=== PATIENT | female | born 1990 | race Caucasian/White ===

== ENCOUNTER 2017-08-04 07:03 | Inpatient (IN) | payer OTHER ==
[~2017-08-04] VITALS: Ht 154.9 cm; Wt 70.3 kg
[~2017-08-04 07:03] MED LIST: AUGMENTIN 875-1 EACH PO; SULFAMETHOXAZO1 EAC1 PO; VITAFOL-ONE CA1 EACH PO
--- NOTE | 2017-08-04 07:39 | ED SKIN/ALLERGY COMPLAINT ---
History of Present Illness General Chief Complaint: Skin Rash/ Abcess Stated Complaint: "I HAVE CELLULITIS ON MY CHEEK IT WENT TO MY EYE" Source: patient Exam Limitations: no limitations Vital Signs & Intake/Output Vital Signs & Intake/Output Vital Signs Date Time Temp Pulse Resp B/P B/P Pulse O2 O2 Flow FiO2 Mean Ox Delivery Rate 08/04 0933 99.0 77 18 140/80 99 Room Air 08/04 0706 98.0 98 18 150/86 96 Room Air Allergies Coded Allergies: NO KNOWN ALLERGIES (11/10/15) Reconcile Medications Amoxicillin/Potassium Clav (Augmentin 875-125 Tablet) 1 EACH TABLET 1 TAB PO BID CELLULITIS OF EYE Doxycycline Hyclate 100 MG CAPSULE 1 CAP PO BID INFECTION (Reported) Pnv#26/Iron Poly/FA/Dha (Vitafol-One Capsule) 1 EACH CAPSULE 1 CAP PO DAILY SUPPLEMENT (Reported) Triage Note: 27 YEAR OLD FEMALE STATES THAT 3 DAYS AGO SHE NOTED A RASH TO R SIDE OF FACE, 2 DAYS AGO SHE WOKE WITH R SIDE FACE SWOLLEN SO SHE WENT TO WALK IN AND THEY GAVE HER A DOSE OF IV ABT AND SENT HER HOME ON DOXY FOR CELLULITIS, PT WOKE TODAY AND R SIDE FACE INCREASED SWELLING INTO NECK AND R EYE AND OOZING PUSTULES, COMPLAINS OF PRESSURE BUT NO PAIN. AFEBRILE AT TRIAGE, R EYE LID RED AND SWOLLEN. DENIES DIFFICULTY SWALLOWING Triage Nurses Notes Reviewed? yes : No Patient currently breastfeeds: No HPI: 27 year old healthy female presents to the ER for chief complaint of right sided facial rash x 3 days associated with right sided eye swelling. She popped a pimple 3 days ago and applied a facial mask and then started to develop redness and swelling. 2 days ago she went to a walk in clinic where she got IV abx for one dose and was started on doxycycline 100 bid. This moring she states it spread into the right eyelid as well as some open pustules and pressure like feeling. No eye pain, change in vision, fever or chills. No other constitutional symptoms. History of preorbital cellulitis admission 2 years ago for preseptal celluliitis. Past History Travel History Traveled to [place] past 21 day No Medical History Any Pertinent Medical History? 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 No Review of Systems Review of Systems Constitutional: Denies: chills, fever. EENTM: Denies: blurred vision, eye pain, eye drainage. Respiratory: Denies: cough, short of breath, sputum production. Cardiovascular: Denies: chest pain. GI: Reports: no symptoms. Genitourinary: Reports: no symptoms. Musculoskeletal: Reports: no symptoms. Skin: Reports: erythema, rash. Neurological/Psychological: Reports: no symptoms. Hematologic/Endocrine: Denies: bruising, polyuria. Immunologic/Allergic: Reports: no symptoms. All Other Systems: Reviewed and Negative Physical Exam Physical Exam General Appearance: well developed/nourished, mild distress Head: atraumatic Eyes: Bilateral: PERRL, EOMI. Ears, Nose, Throat: normal pharynx, normal ENT inspection, hearing grossly normal Neck: normal inspection, supple Respiratory: normal breath sounds Cardiovascular: regular rate/rhythm Gastrointestinal: soft, non-tender Back: normal inspection Extremities: normal inspection, normal range of motion, no edema Neurologic/Psych: awake, alert, oriented x 3, normal mood/affect Lymphatic: no anterior cervical isabel Progress Plan of Care: Orders Procedure Date/time Status Regular Diet 08/04 D Active Patient Data 08/04 1150 Active ED Holding Orders 08/04 1145 Active Admit to inpatient 08/04 1145 Active Vital Signs 08/04 1145 Active Code Status 08/04 1145 Active BLOOD CULTURE 08/04 0744 Active URINE 08/04 0744 Complete COMPREHENSIVE METABOLIC PANEL 08/04 0744 Complete CBC WITHOUT DIFFERENTIAL 08/04 0744 Complete Laboratory Tests 08/04/17 1003: Urine Test NEGATIVE 08/04/17 0819: Anion Gap 18 H, Estimated GFR > 60, BUN/Creatinine Ratio 15.0, Glucose 112 H, Calcium 10.0, Total Bilirubin 0.1 L, AST 17, ALT 33, Alkaline Phosphatase 91, Total Protein 7.7, Albumin 4.7, Globulin 3.0, Albumin/Globulin Ratio 1.6, CBC w Diff NO MAN DIFF REQ, RBC 4.92, MCV 82.2, MCH 27.7, MCHC 33.7, RDW 13.0, MPV 7.4 , Gran % 79.0 H, Lymphocytes % 14.4 L, Monocytes % 3.5, Eosinophils % 2.9, Basophils % 0.2, Absolute Granulocytes 11.1 H, Absolute Lymphocytes 2.0, Absolute Monocytes 0.5, Absolute Eosinophils 0.4, Absolute Basophils 0 Microbiology 08/04 830 BLOOD: Blood Culture - RECD 08/04 818 BLOOD: Blood Culture - RECD Diagnostic Imaging: Viewed by Me: CT Scan. Discussed w/RAD: CT Scan. Radiology Impression: PATIENT: LAN MACHUCA PRESENT AGE: 27 PATIENT ACCOUNT NO: [id number] : 90 LOCATION: [facility] ORDERING PHYSICIAN: Barb Puente MD SERVICE DATE: 08/04/17 EXAM TYPE: CAT - CT MAXILLOFACIAL W CONT EXAMINATION: CT MAXILLOFACIAL WITH CONTRAST CLINICAL INFORMATION: Right facial swelling. Swelling around right eye. Evaluate for cellulitis COMPARISON: Portions of a previous study 11/10/15 TECHNIQUE: Multidetector helical imaging was performed in the axial plane with generation of coronal and sagittal reformatted images. The examination was performed after the administration of 98 mL of Optiray 320 intravenous contrast DLP: 820 mGy-cm FINDINGS: The globes are intact and symmetric. The lenses are not displaced. The optic nerves appear within normal limits and are symmetric. There is enhancement of the superior ophthalmic vein on each side. There is no asymmetry in the region of the lacrimal apparatus. There is no stranding in the orbital fat. Specifically there is no stranding deep to the orbital septum on either side. There is asymmetric stranding and skin thickening in the right malar and periorbital soft tissues. There is no discrete collection. There are prominent regional lymph nodes on the right which may be reactive. There is no extra-axial collection in the visualized portions of the head. There is no thrombus demonstrated within the carotid or jugular on either side. There is no focal abnormality within the submandibular or parotid gland on either side. The visualized airway appears intact. There is no fluid level. There is some metallic artifact. There is no bone destruction. Small thyroid nodules are nonspecific. IMPRESSION: There is evidence of superficial cellulitis in the preseptal soft tissues around the right orbit and malar soft tissues. There are prominent right cervical lymph nodes. No drainable abscess. No stranding in the orbital fat DICTATED BY: Dagoberto Soriano MD DATE/TIME DICTATED:08/04/171121 JEWELRY STORE MANAGER:LILY DATE/TIME TRANSCRIBED:08/04/171121 CONFIDENTIAL, DO NOT COPY WITHOUT APPROPRIATE AUTHORIZATION. <Electronically signed in Other Vendor System> SIGNED BY: Dagoberto Soriano MD 08/04/17 1136 Departure Departure Time of Disposition: 1143 Disposition: STILL A PATIENT Condition: Stable Clinical Impression Primary Impression: Facial cellulitis Referrals: Elicia Ellison APRN (PCP/Family) Departure Forms: Customer Survey General Discharge Information Admission Note Spoke With: Leti Rodriguez MD Documentation of Exam: Documentation of any treatments & extenuating circumstances including Concerns Regarding Discharge (functional status, medication knowledge or non-compliance, living conditions, etc.) that warrant an admission rather than observation: [IV ABX, TOPICAL CARE, CONSIDER ID CONSULT, F/U CULTURES. PATIENT FAILED OUTPATIENT ANTIBIOTICS, WOULD BE MEDICALLY HARMFUL FOR DISCHARGE]
[2017-08-04] MEDS ORDERED: DOXYCYCLINE HY100 M2 PO (08:14)
[2017-08-04 08:33] LABS: ABSOLUTE BASOPHIL COUNT 0 /CUMM (0.0-0.2); ABSOLUTE EOSINOPHIL COUNT 0.4 /CUMM (0.0-0.7); ABSOLUTE GRANULOCYTE CT 11.1 /CUMM (1.4-6.5); ABSOLUTE MONOCYTE COUNT 0.5 /CUMM (0.10-0.60); BASOPHIL % 0.2 % (0.0-2.0); EOSINOPHIL % 2.9 % (0-5); HEMATOCRIT 40.4 % (37-47); MEAN CORPUSCULAR HGB 27.7 PG (27.0-31.0); MEAN CORPUSCULAR HGB CONC 33.7 G/DL (33.0-37.0); MEAN CORPUSCULAR VOLUME 82.2 FL (81.0-99.0); MEAN PLATELET VOLUME 7.4 FL (7.4-10.4); PLATELET COUNT 460 /CUMM (130-400); RED BLOOD CELL CT 4.92 /CUMM (4.20-5.40); WHITE BLOOD CELL COUNT 14.1 /CUMM (4.8-10.8)
--- NOTE | 2017-08-04 11:36 | CT SCAN REPORT ---
EXAMINATION: CT MAXILLOFACIAL WITH CONTRAST CLINICAL INFORMATION: Right facial swelling. Swelling around right eye. Evaluate for cellulitis COMPARISON: Portions of a previous study 11/10/15 TECHNIQUE: Multidetector helical imaging was performed in the axial plane with generation of coronal and sagittal reformatted images. The examination was performed after the administration of 98 mL of Optiray 320 intravenous contrast DLP: 820 mGy-cm FINDINGS: The globes are intact and symmetric. The lenses are not displaced. The optic nerves appear within normal limits and are symmetric. There is enhancement of the superior ophthalmic vein on each side. There is no asymmetry in the region of the lacrimal apparatus. There is no stranding in the orbital fat. Specifically there is no stranding deep to the orbital septum on either side. There is asymmetric stranding and skin thickening in the right malar and periorbital soft tissues. There is no discrete collection. There are prominent regional lymph nodes on the right which may be reactive. There is no extra-axial collection in the visualized portions of the head. There is no thrombus demonstrated within the carotid or jugular on either side. There is no focal abnormality within the submandibular or parotid gland on either side. The visualized airway appears intact. There is no fluid level. There is some metallic artifact. There is no bone destruction. Small thyroid nodules are nonspecific. IMPRESSION: There is evidence of superficial cellulitis in the preseptal soft tissues around the right orbit and malar soft tissues. There are prominent right cervical lymph nodes. No drainable abscess. No stranding in the orbital fat
--- NOTE | 2017-08-04 12:51 | History & Physical ---
See Addendum General Information and HPI MD Statement: I have seen and personally examined LAN MACHUCA and documented this H&P. The patient is a 27 year old F who presented with a patient stated chief complaint of right facial swelling and redness. Source of Information: patient Exam Limitations: no limitations History of Present Illness: Patient is a 27-year-old woman with a history of recurrent right periorbital cellulitis, recent episode 2 years ago who presented to the emergency department today with a three-day history of right periorbital swelling, redness associated with mild discomfort, with no associated fevers or chills. Patient reports no history of trauma, although she does endorse to a rash that she noticed 3 days prior to admission which she cleaned with alcohol. Following this, patient developed worsening redness and swelling, which prompted her to go to an urgent care. There she was prescribed oral antibiotics (Doxy BID) after receiving a dose of IV antibiotic (unknown). Patient noticed no improvement over the course of next 2 days and decided to come to the ED for further care. No recent upper respiratory infection. At this point, she remains afebrile. No headaches, vision changes, otalgia or any ocular limitations. She does endorse to swollen glands on the right side of the neck. She denies any smoking, alcohol intake or any recreational drug use. Other systems reviewed and negative, exceptions above. Allergies/Medications Allergies: Coded Allergies: NO KNOWN ALLERGIES (11/10/15) Home Med list Amoxicillin/Potassium Clav (Augmentin 875-125 Tablet) 1 EACH TABLET 1 TAB PO BID CELLULITIS OF EYE Doxycycline Hyclate 100 MG CAPSULE 1 CAP PO BID INFECTION (Reported) Pnv#26/Iron Poly/FA/Dha (Vitafol-One Capsule) 1 EACH CAPSULE 1 CAP PO DAILY SUPPLEMENT (Reported) Past History Travel History Traveled to [place] past 21 day No Medical History Neurological: NONE EENT: allergies Cardiovascular: NONE Respiratory: NONE Gastrointestinal: NONE Hepatic: NONE Renal: NONE Musculoskeletal: NONE Psychiatric: NONE Endocrine: NONE Blood Disorders: NONE Cancer(s): NONE 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 Review of Systems Review of Systems Constitutional: Reports: see HPI. Exam & Diagnostic Data Last 24 Hrs of Vital Signs/I&O Vital Signs Date Time Temp Pulse Resp B/P B/P Pulse O2 O2 Flow FiO2 Mean Ox Delivery Rate 08/04 0933 99.0 77 18 140/80 99 Room Air 08/04 0706 98.0 98 18 150/86 96 Room Air Intake & Output 08/04 1600 08/04 0800 08/04 0000 Intake Total Output Total Balance Patient 155 lb Weight Physical Exam General Appearance Alert, Oriented X3, Cooperative Skin Areas of impetiginazation right side of face.periorbital edema, erythema and mild tenderness. HEENT Atraumatic, PERRLA, EOMI, Mucous Membr. moist/pink Lymphatic Cervical nl (right cervical lymphadenopathy) Cardiovascular Regular Rate, Normal S1, Normal S2 Lungs Clear to Auscultation, Normal Air Movement Abdomen Normal Bowel Sounds, Soft, No Tenderness Extremities No Clubbing, No Cyanosis, No Edema Last 24 Hrs of Labs/Sundeep: Laboratory Tests 08/04/17 1003: Urine Test NEGATIVE 08/04/17 0819: Anion Gap 18 H, Estimated GFR > 60, BUN/Creatinine Ratio 15.0, Glucose 112 H, Calcium 10.0, Total Bilirubin 0.1 L, AST 17, ALT 33, Alkaline Phosphatase 91, Total Protein 7.7, Albumin 4.7, Globulin 3.0, Albumin/Globulin Ratio 1.6, CBC w Diff NO MAN DIFF REQ, RBC 4.92, MCV 82.2, MCH 27.7, MCHC 33.7, RDW 13.0, MPV 7.4 , Gran % 79.0 H, Lymphocytes % 14.4 L, Monocytes % 3.5, Eosinophils % 2.9, Basophils % 0.2, Absolute Granulocytes 11.1 H, Absolute Lymphocytes 2.0, Absolute Monocytes 0.5, Absolute Eosinophils 0.4, Absolute Basophils 0 Microbiology 08/04 830 BLOOD: Blood Culture - RECD 08/04 818 BLOOD: Blood Culture - RECD Diagnostic Data Other Results Maxillofacial CT: IMPRESSION: There is evidence of superficial cellulitis in the preseptal soft tissues around the right orbit and malar soft tissues. There are prominent right cervical lymph nodes. No drainable abscess. No stranding in the orbital fat Assessment/Plan Assessment: 27-year-old woman with history of recurrent periorbital cellulitis presents with four-day history of right periorbital/facial erythema, edema and discomfort, afebrile throughout with leukocytosis and a CAT scan revealing superficial cellulitis in the preseptal soft tissues around the right orbit and malar soft tissues. 1. Right iliana-orbital cellulitis: Continue Unasyn at 1.5 g IV every 6 hours. Warm compresses to the affected area. Continue to monitor for fevers and white count. Transition to oral antibiotics contingent on clinical improvement to complete a total 10 day course. 2. Thrombocytosis: Likely reactive. Continue to monitor. High anion gap noted, no metabolic acidosis. Lactate ordered, 2.8. Patient does meet sepsis criteria, given leukocytosis, tachycardia, soft tissue source and mild lactatemia without acidosis. Hydration NS @100cc/hr x 1 bag. Recheck Lactate in 3 hours. Full code. Regular diet. Lovenox for DVT prophylaxis. As Ranked By This Provider Problem List: 1. Periorbital cellulitis of right eye Core Measures/Misc (03/19) Acute Coronary Syndrome ACS Diagnosis: No Congestive Heart Failure Congestive Heart Failure Diagnosis No Cerebrovascular Accident CVA/TIA Diagnosis: No VTE (View Protocol) VTE Risk Factors Oral Contraception No Mechanical VTE Prophylaxis d/t N/A MechProphylax Ordered No VTE Pharm Prophylaxis d/t NA PharmProphylax ordered Sepsis (View protocol) Sepsis Present: No
[2017-08-04 22:12] VITALS: BP 124/88
[2017-08-05 06:54] VITALS: BP 116/92
[2017-08-05 09:08] LABS: ABSOLUTE BASOPHIL COUNT 0 /CUMM (0.0-0.2); ABSOLUTE EOSINOPHIL COUNT 0.4 /CUMM (0.0-0.7); ABSOLUTE GRANULOCYTE CT 7.9 /CUMM (1.4-6.5); ABSOLUTE LYMPH COUNT 2.9 /CUMM (1.2-3.4); ABSOLUTE MONOCYTE COUNT 0.4 /CUMM (0.10-0.60); BASOPHIL % 0.4 % (0.0-2.0); EOSINOPHIL % 3.1 % (0-5); GRANULOCYTE % 67.5 % (42.2-75.2); HEMATOCRIT 38.4 % (37-47); MEAN CORPUSCULAR HGB 28.2 PG (27.0-31.0); MEAN CORPUSCULAR HGB CONC 33.8 G/DL (33.0-37.0); MEAN CORPUSCULAR VOLUME 83.4 FL (81.0-99.0); MEAN PLATELET VOLUME 7.5 FL (7.4-10.4); PLATELET COUNT 428 /CUMM (130-400); RBC DISTRIBUTION WIDTH 13.3 % (11.5-14.5); RED BLOOD CELL CT 4.61 /CUMM (4.20-5.40); WHITE BLOOD CELL COUNT 11.7 /CUMM (4.8-10.8)
--- NOTE | 2017-08-05 14:39 | PN- Att Addend ---
Attending Addendum Attending Brief Note Patient seen and examined. Overall she says she is feeling better. The swelling around the right eye is markedly better but now the area around her cheek is worrying her. On exam she is afebrile, blood pressure is 116/92, pulse is 84 and she is breathing at 16-18. She is awake alert oriented, lungs are clear to auscultation, heart is S1-S2 regular, abdomen is soft nontender. She has mild erythema on her eyelid with minimal swelling and no proptosis, no ophthalmoplegia and no pain behind the eyelid. On her right cheek area that are crusted lesions that appear acneiform with mild erythema around it and some swelling. She has no trismus, she has some shotty cervical lymphadenopathy on the right side but she can move her tongue and facial muscles well and there is no abnormality. She is a 27-year-old has come in with a facial and preseptal cellulitis. She had the cellulitis last year toobut that was primarily around her eye. Her CT was negative for any complications. We'll continue IV Unasyn continue local warm compresses and follow. White count has come down nicely from 14-11. Follow closely.
[2017-08-05 14:43] VITALS: BP 128/80
[2017-08-05 23:16] VITALS: BP 130/92
[2017-08-06 06:42] VITALS: BP 118/68
[2017-08-06 08:40] LABS: ABSOLUTE BASOPHIL COUNT 0 /CUMM (0.0-0.2); ABSOLUTE EOSINOPHIL COUNT 0.4 /CUMM (0.0-0.7); ABSOLUTE GRANULOCYTE CT 7.6 /CUMM (1.4-6.5); ABSOLUTE LYMPH COUNT 2.7 /CUMM (1.2-3.4); ABSOLUTE MONOCYTE COUNT 0.6 /CUMM (0.10-0.60); BASOPHIL % 0.4 % (0.0-2.0); EOSINOPHIL % 3.2 % (0-5); GRANULOCYTE % 67.4 % (42.2-75.2); HEMATOCRIT 38.3 % (37-47); MEAN CORPUSCULAR HGB 27.9 PG (27.0-31.0); MEAN CORPUSCULAR HGB CONC 33.4 G/DL (33.0-37.0); MEAN CORPUSCULAR VOLUME 83.4 FL (81.0-99.0); MEAN PLATELET VOLUME 7.3 FL (7.4-10.4); PLATELET COUNT 410 /CUMM (130-400); RBC DISTRIBUTION WIDTH 13.1 % (11.5-14.5); RED BLOOD CELL CT 4.59 /CUMM (4.20-5.40); WHITE BLOOD CELL COUNT 11.3 /CUMM (4.8-10.8)
--- NOTE | 2017-08-06 12:38 | PN- Att Addend ---
Attending Addendum Attending Brief Note Patient seen and examined. She is feeling much better today. The swelling on the right eyelid is very minimal. The swelling around the right maxillary/ cheek area has also come down and the crusting also appears to be better on the right cheek area.. On exam she is afebrile, blood pressure is 110/80, pulse is 84 and she is breathing at 16-18. She is awake alert oriented, lungs are clear to auscultation, heart is S1-S2 regular, abdomen is soft nontender. She has no trismus, she has some shotty cervical lymphadenopathy on the right side but she can move her tongue and facial muscles well and there is no abnormality. She is a 27-year-old has come in with a facial and ?preseptal cellulitis. She had the cellulitis last year too but that was primarily around her eye. Her CT was negative for any complications. At this point I think she is stable for discharge with close outpatient follow-up. She'll continue on Augmentin 875 twice a day to complete a 7 day course. I've given her a slip to recheck a CBC to follow the white count which came down from 14-11 but has now stayed at 11. 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 In addition I'm giving her a referral to a multi site leasing consultant as well.
[2017-08-06] MEDS ORDERED: AUGMENTIN 875-1 EACH PO (12:59)
--- NOTE | 2017-08-06 13:02 | Patient Discharge Instructions ---
Discharge Instructions General Discharge Information You were seen/treated for: Cellulitis Watch for these problems: Pain in right eye, headache, fever, swelling and redness of eye. Please come to ED or talk to your pcp. Special Instructions: Follow up with your pcp in one week. Follow up with confidential secretary in one week. Diet Recommended Diet: Regular Activity Activity Self Limited: Yes Acute Coronary Syndrome Inclusion Criteria At DC or during hospital stay patient has or had the following: ACS DIAGNOSIS No Discharge Core Measures Meds if any: Prescribed or Continued at Discharge Meds if any: NOT Prescribed or Continued at Discharge Congestive Heart Failure Inclusion Criteria At DC or during hospital stay patient has or had the following: CHF DIAGNOSIS No Discharge Core Measures Meds if any: Prescribed or Continued at Discharge Meds if any: NOT Prescribed or Continued at Discharge Cerebrovascular accident Inclusion Criteria At DC or during hospital stay patient has or had the following: CVA/TIA Diagnosis No Discharge Core Measures Meds if any: Prescribed or Continued at Discharge Meds if any: NOT Prescribed or Continued at Discharge Venous thromboembolism Inclusion Criteria VTE Diagnosis No VTE Type NONE VTE Confirmed by (Test) NONE Discharge Core Measures - Per Current guidelines, there needs to be overlap - treatment for the first 5 days of Warfarin therapy. - If discharged on Warfarin prior to 5 days of - overlap therapy, the patient will need to be - assessed for post discharge needs including - *Post discharge parental anticoagulation - *Warfarin and/or parental anticoagulation education - *Follow up date to check INR post discharge At least 5 days overlap therapy as Inpatient No Meds if any: Prescribed or Continued at Discharge Note: Overlap Therapy is Warfarin and Anticoagulant Meds if any: NOT Prescribed or Continued at Discharge
== END 2017-08-06 14:25 | DRG 603 ==
LOC: ERH 07:03 → ERHI 11:45 → 2NB 11:45 → ENRESERV 12:24 → ENTRNSPT 13:14 → EDTRNSPT 13:33 → EDTRNSPTSTS 13:33 → 2NB 13:42 → CMPTRNSPT 13:55 → 2NB 08-06 14:25
PROVIDERS: Emergency Medicine; Internal Medicine; Internal Medicine Hematology & Oncology
DX: L03.213 Periorbital cellulitis (principal); D47.3 Essential (hemorrhagic) thrombocythemia
CPT/HCPCS: 2NBP; 36415; 81025; 82436; 87040; J1650